=== PATIENT | female | born 1985 | race African-American/Black ===

== ENCOUNTER 2019-01-05 22:13 | Emergency (ER) | payer OTHER ==
[2019-01-05] MEDS ORDERED: DEXTROSE 50%-WATER 25 GM/50 ML DISP.SYRIN IV ONE (22:20)
--- NOTE | 2019-01-06 00:42 | ER Document Report ---
ED General - General Chief Complaint: Low Blood Sugar Stated Complaint: HYPOGLYCEMIA Time Seen by Provider: 01/05/19 22:25 TRAVEL OUTSIDE OF THE [place] IN LAST 30 DAYS: No - HPI Notes: Patient is a 33-year-old female with a history of type 1 diabetes, insulin pump, who presents to the emergency department for evaluation of low blood sugar. The patient states she is feeling weak and dizzy. Her blood sugar was found to be in the 20s. She was given glucagon, glucose, and is feeling improved now. She states she believes she did not eat or drink enough today. She had a Hoang fundoplication performed last November. She states that since then she has difficulty swallowing, but often finds it painful, and admits she just does not take in very much. She states she did have oral glucose tablets in the car, she tried those, but it was too late per her. At this point she denies any pain. She is seeing without difficulty. She is waiting to establish care with endocrinology, she just moved to the area, is under insurance. - Related Data Allergies/Adverse Reactions: azithromycin [From Zithromax] Allergy (Severe, Verified 12/03/14 14:29) Swelling of Throat cinnamon [Cinnamon] Allergy (Severe, Verified 12/03/14 14:29) Swelling of Throat sulfamethoxazole [From Bactrim] Allergy (Severe, Verified 12/03/14 14:29) Swelling of Throat trimethoprim [From Bactrim] Allergy (Severe, Verified 12/03/14 14:29) Swelling of Throat Shellfish * [Shellfish] Allergy (Verified 12/03/14 14:29) latex [Latex] Adverse Reaction (Mild, Verified 12/03/14 14:29) Generalized rash Home Medications: insulin pump Past Medical History - General Information source: Patient - Social History Smoking Status: Unknown if Ever Smoked Family History: Malignancy - BREAST CANCER, LUNG CANCER, IDDM Patient has suicidal ideation: No Patient has homicidal ideation: No - Past Medical History Cardiac Medical History: Reports: Hx Heart Murmur Denies: Hx Atrial Fibrillation, Hx Congestive Heart Failure, Hx Coronary Artery Disease, Hx Heart Attack, Hx Hypercholesterolemia, Hx Hypertension, Hx Peripheral Vascular Disease Pulmonary Medical History: Denies: Hx Tuberculosis Neurological Medical History: Reports: Hx Migraine Endocrine Medical History: Reports: Hx Diabetes Mellitus Type 1 - with pump. Denies: Hx Graves' Disease, Hx Hyperthyroidism, Hx Hypothyroidism Renal/ Medical History: Reports: Hx Ectopic - 7 years ago, Hx Ovarian Cysts. Denies: Hx Pelvic Inflammatory Disease Malignancy Medical History: Reports: Hx Ovarian Cancer. Denies: Hx Breast Cancer, Hx Cervical Cancer Musculoskeletal Medical History: Denies Hx Systemic Lupus Erythematosus Past Surgical History: Reports: Hx Abdominal Surgery - starr fundiplication, Hx Section - x3, Hx Gynecologic Surgery - Laparoscopy for ovarian cyst. Denies: Hx Pacemaker - Immunizations Immunizations up to date: Yes Hx Diphtheria, Pertussis, Tetanus Vaccination: Yes Hx Pneumococcal Vaccination: 02/18/11 Review of Systems - Review of Systems Constitutional: See HPI EENT: No symptoms reported Cardiovascular: No symptoms reported Respiratory: No symptoms reported Gastrointestinal: No symptoms reported Genitourinary: No symptoms reported Musculoskeletal: No symptoms reported Skin: No symptoms reported Neurological/Psychological: See HPI Physical Exam - Vital signs Vitals: Temp Resp Pulse Ox 97.6 F 16 100 01/05/19 22:25 01/05/19 22:25 01/05/19 22:25 - Notes Notes: Is a pleasant 33-year-old female who appears her stated age, no acute distress. Vital signs reviewed, please refer to chart. Head is normocephalic, atraumatic. Pupils equal round, reactive to light. Pharynx is without erythema or exudate. Neck is supple without meningismus. Heart is regular rate and rhythm. Lungs are clear to auscultation bilaterally. Abdomen is soft, nontender, normoactive bowel sounds throughout. Extremities without cyanosis, clubbing. Posterior calves are nontender. Peripheral pulses are equal. Skin is warm and dry. Patient is awake, alert, neurological exam is nonfocal. Course - Re-evaluation Re-evalutation: 01/06/19 00:40 Patient presents emergency department for evaluation of hypoglycemia. She was treated in the field and was feeling improved. She was awake and alert here. Her insulin pump is been removed. She was brought a tray. Her blood glucose continued to stay stable, and it was actually 357 after eating. The patient is confident that she can eat enough to keep her blood sugar up, and the importance of that was stressed to her. She voiced understanding was discharged. - Vital Signs Vital signs: Temp Pulse Resp BP Pulse Ox 97.6 F 21 H 108/83 100 01/05/19 22:25 01/05/19 23:01 01/05/19 23:01 01/05/19 23:01 - Laboratory Laboratory results interpreted by me: 01/06/19 00:14 POC Glucose 357 H Discharge - Discharge Clinical Impression: Hypoglycemia Condition: Stable Disposition: HOME, SELF-CARE Instructions: Hypoglycemia ([facility]) Additional Instructions: Be sure to eat and drink enough to keep your blood sugar within normal limits. Follow-up with primary care this week. Return to the emergency department with worsening or new concerning symptoms of any sort.
[2019-01-06 00:51] VITALS: BP 109/80
== END 2019-01-06 00:55 | disposition home or self-care (01) ==
LOC: ER 22:13
DX: E10.649 Type 1 diabetes mellitus with hypoglycemia without coma (principal); R53.1 Weakness; R42 Dizziness and giddiness; Z88.3 Allergy status to other anti-infective agents; Z96.41 Presence of insulin pump (external) (internal); Z91.040 Latex allergy status; Z85.43 Personal history of malignant neoplasm of ovary
CPT/HCPCS: 82962; 99285

== ENCOUNTER 2019-05-11 17:39 | Emergency (ER) | payer OTHER ==
--- NOTE | 2019-05-11 17:56 | ER Document Report ---
ED Medical Screen (RME) - General Chief Complaint: Swelling of Lower Extremity Stated Complaint: BILATERAL LOWER EXTREMITY EDEMA Time Seen by Provider: 05/11/19 17:48 Mode of Arrival: Ambulatory Information source: Patient Notes: Patient presents with concerns about peripheral edema that started about 7 hours ago. Patient states she has had a 20 pound weight gain over the past 7 hours though denies any excessive increase oral intake. Patient has a history of PE, diabetes and S protein deficiency. Patient is currently taking Xarelto. I have greeted and performed a rapid initial assessment of this patient. A comprehensive ED assessment and evaluation of the patient, analysis of test results and completion of the medical decision making process will be conducted by additional ED providers. TRAVEL OUTSIDE OF THE [place] IN LAST 30 DAYS: No - Related Data Allergies/Adverse Reactions: azithromycin [From Zithromax] Allergy (Severe, Verified 12/03/14 14:29) Swelling of Throat cinnamon [Cinnamon] Allergy (Severe, Verified 12/03/14 14:29) Swelling of Throat sulfamethoxazole [From Bactrim] Allergy (Severe, Verified 12/03/14 14:29) Swelling of Throat trimethoprim [From Bactrim] Allergy (Severe, Verified 12/03/14 14:29) Swelling of Throat Shellfish * [Shellfish] Allergy (Verified 12/03/14 14:29) latex [Latex] Adverse Reaction (Mild, Verified 12/03/14 14:29) Generalized rash Past Medical History - Past Medical History Cardiac Medical History: Reports: Hx Heart Murmur Denies: Hx Atrial Fibrillation, Hx Congestive Heart Failure, Hx Coronary Artery Disease, Hx Heart Attack, Hx Hypercholesterolemia, Hx Hypertension, Hx Peripheral Vascular Disease Pulmonary Medical History: Denies: Hx Tuberculosis Neurological Medical History: Reports: Hx Migraine Endocrine Medical History: Reports: Hx Diabetes Mellitus Type 1 - with pump. Denies: Hx Graves' Disease, Hx Hyperthyroidism, Hx Hypothyroidism Renal/ Medical History: Reports: Hx Ectopic - 7 years ago, Hx Ovarian Cysts. Denies: Hx Pelvic Inflammatory Disease Malignancy Medical History: Reports: Hx Ovarian Cancer. Denies: Hx Breast Cancer, Hx Cervical Cancer Musculoskeltal Medical History: Denies Hx Systemic Lupus Erythematosus Past Surgical History: Reports: Hx Abdominal Surgery - starr fundiplication, Hx Section - x3, Hx Gynecologic Surgery - Laparoscopy for ovarian cyst. Denies: Hx Pacemaker - Immunizations Immunizations up to date: Yes Hx Diphtheria, Pertussis, Tetanus Vaccination: Yes Physical Exam - Vital signs Vitals: Temp Pulse Resp BP Pulse Ox 98.3 F 93 13 118/79 100 05/11/19 17:44 05/11/19 17:44 05/11/19 17:44 05/11/19 17:44 05/11/19 17:44 - General General appearance: Appears well, Alert Notes: 1+ edema to extremities, breath sounds clear Course - Vital Signs Vital signs: Temp Pulse Resp BP Pulse Ox 98.3 F 93 13 118/79 100 05/11/19 17:44 05/11/19 17:44 05/11/19 17:44 05/11/19 17:44 05/11/19 17:44
--- NOTE | 2019-05-11 18:22 | RADIOLOGY REPORT (SQ) ---
EXAM DESCRIPTION: CHEST 2 VIEWS COMPLETED DATE/TIME: 05/11/2019 6:01 pm REASON FOR STUDY: edema COMPARISON: 12/06/2014 TECHNIQUE: Frontal and lateral radiographic views of the chest acquired. NUMBER OF VIEWS: Two view. LIMITATIONS: None. FINDINGS: LUNGS AND PLEURA: No pneumothorax. No consolidation or pleural effusion. MEDIASTINUM AND HILAR STRUCTURES: Stable. HEART AND VASCULAR STRUCTURES: Stable. BONES: No acute findings. HARDWARE: None in the chest. OTHER: No other significant finding. IMPRESSION: NO ACUTE FINDINGS. TECHNICAL DOCUMENTATION: JOB ID: [id number] [place]-72 2010 [employer]- All Rights Reserved Reading location - IP/workstation name: [email or web address]
[2019-05-11 18:53] LABS: HEMATOCRIT 27.2 % (36.0-47.0); HEMOGLOBIN 8.3 g/dL (12.0-15.5); MEAN CORPUSCULAR HEMOGLOBIN 19.8 pg (27.0-33.4); MEAN CORPUSCULAR HGB CONC 30.7 g/dL (32.0-36.0); PLATELET COUNT 359 10^3/uL (150-450); RED BLOOD COUNT 4.22 10^6/uL (3.72-5.28); RED CELL DISTRIBUTION WIDTH 21.6 % (11.5-14.0); WHITE BLOOD COUNT 5.2 10^3/uL (4.0-10.5)
[2019-05-11 19:06] LABS: ALBUMIN 3.2 g/dL (3.5-5.0); ALKALINE PHOSPHATASE 104 U/L (38-126); ANION GAP 12 (5-19); ASPARTATE AMINO TRANSFERASE 207 U/L (14-36); BILIRUBIN,DIRECT 0.2 mg/dL (0.0-0.4); BILIRUBIN,TOTAL 0.3 mg/dL (0.2-1.3); BLOOD UREA NITROGEN 11 mg/dL (7-20); CALCIUM 8.9 mg/dL (8.4-10.2); CARBON DIOXIDE 22 mmol/L (22-30); CHLORIDE 107 mmol/L (98-107); GLUCOSE 174 mg/dL (75-110); POTASSIUM 3.8 mmol/L (3.6-5.0); TOTAL PROTEIN 6.5 g/dL (6.3-8.2)
[2019-05-11 19:28] LABS: ABSOLUTE LYMPHOCYTES# (MANUAL) 1.7 10^3/uL (0.5-4.7); ABSOLUTE MONOCYTES # (MANUAL) 0.1 10^3/uL (0.1-1.4); BASOPHILS % (MANUAL) 0 % (0-2); EOSINOPHILS % (MANUAL) 2 % (0-6); LYMPHOCYTES % (MANUAL) 33 % (13-45); MONOCYTES % (MANUAL) 2 % (3-13); NUCLEATED RED BLOOD CELLS 1 /100 WBC (0); SEGMENTED NEUTROPHILS % (MAN) 63 % (42-78); TOTAL CELLS COUNTED 100
[2019-05-11 19:31] LABS: ANISOCYTOSIS 3+; HYPOCHROMASIA 1+; OVALOCYTES SLIGHT; POIKILOCYTOSIS SLIGHT; TARGET CELLS SLIGHT; TEAR DROP CELLS SLIGHT
[2019-05-11 19:32] LABS: MEAN CORPUSCULAR VOLUME 65 fl (80-97); PLATELET COMMENT ADEQUATE
--- NOTE | 2019-05-11 21:34 | EKG REPORT ---
SEVERITY:- BORDERLINE ECG - SINUS RHYTHM BORDERLINE T WAVE ABNORMALITIES : Confirmed by: Claude Whitfield MD 11-May-2019 21:34:13
--- NOTE | 2019-05-11 21:41 | ER Document Report ---
ED General - General Chief Complaint: Leg Swelling Stated Complaint: BILATERAL LOWER EXTREMITY EDEMA Time Seen by Provider: 05/11/19 17:48 Primary Care Provider: CASE SOLIMAN MD [Primary Care Provider] - Follow up as needed Mode of Arrival: Ambulatory Notes: 34-year-old woman presents to the emergency department with a history of DVT and pulmonary embolus in the past. She states that she developed pulmonary embolus after abdominal surgery approximately blank. She notes that she has had a increased weight gain and swelling which began this afternoon. She has had a heaviness in her chest and she is concerned that she may have another pulmonary embolus. She is taking Xarelto and denies chest pain. She does complain of a heaviness when she takes a deep breath. She presents to the ER for evaluation for pulmonary embolus. Patient is a insulin-dependent diabetes mellitus patient and on insulin pump. TRAVEL OUTSIDE OF THE [place] IN LAST 30 DAYS: No - Related Data Allergies/Adverse Reactions: azithromycin [From Zithromax] Allergy (Severe, Verified 12/03/14 14:29) Swelling of Throat cinnamon [Cinnamon] Allergy (Severe, Verified 12/03/14 14:29) Swelling of Throat sulfamethoxazole [From Bactrim] Allergy (Severe, Verified 12/03/14 14:29) Swelling of Throat trimethoprim [From Bactrim] Allergy (Severe, Verified 12/03/14 14:29) Swelling of Throat Shellfish * [Shellfish] Allergy (Verified 12/03/14 14:29) latex [Latex] Adverse Reaction (Mild, Verified 12/03/14 14:29) Generalized rash Past Medical History - General Information source: Patient - Social History Smoking Status: Never Smoker Frequency of alcohol use: None Drug Abuse: None Family History: Malignancy - BREAST CANCER, LUNG CANCER, IDDM Patient has suicidal ideation: No Patient has homicidal ideation: No - Past Medical History Cardiac Medical History: Reports: Hx Heart Murmur Denies: Hx Atrial Fibrillation, Hx Congestive Heart Failure, Hx Coronary Artery Disease, Hx Heart Attack, Hx Hypercholesterolemia, Hx Hypertension, Hx Peripheral Vascular Disease Pulmonary Medical History: Denies: Hx Tuberculosis Neurological Medical History: Reports: Hx Migraine Endocrine Medical History: Reports: Hx Diabetes Mellitus Type 1 - with pump. Denies: Hx Graves' Disease, Hx Hyperthyroidism, Hx Hypothyroidism Renal/ Medical History: Reports: Hx Ectopic - 7 years ago, Hx Ovarian Cysts. Denies: Hx Pelvic Inflammatory Disease Malignancy Medical History: Reports: Hx Ovarian Cancer. Denies: Hx Breast Cancer, Hx Cervical Cancer Musculoskeletal Medical History: Denies Hx Systemic Lupus Erythematosus Past Surgical History: Reports: Hx Abdominal Surgery - starr fundiplication, Hx Section - x3, Hx Gynecologic Surgery - Laparoscopy for ovarian cyst. Denies: Hx Pacemaker - Immunizations Immunizations up to date: Yes Hx Diphtheria, Pertussis, Tetanus Vaccination: Yes Hx Pneumococcal Vaccination: 02/18/11 Review of Systems - Review of Systems Notes: Constitutional: + Weight gain HENT: Negative for sore throat. Eyes: Negative for visual changes. Cardiovascular: Negative for chest pain. Respiratory: + Shortness of breath Gastrointestinal: Negative for abdominal pain, vomiting or diarrhea. Genitourinary: negative for dysuria. Musculoskeletal: + Lower extremity edema Skin: Negative for rash. Neurological: Negative for headaches, weakness or numbness. 10 point ROS negative except as marked above and in HPI. Physical Exam - Vital signs Vitals: Temp Pulse Resp BP Pulse Ox 98.3 F 93 13 118/79 100 05/11/19 17:44 05/11/19 17:44 05/11/19 17:44 05/11/19 17:44 05/11/19 17:44 - Notes Notes: PHYSICAL EXAMINATION: Physical Exam: General: Well-nourished well-developed 34-year-old female in no acute distress HEENT: NC/AT, pupils equal round and reactive to light, MM moist,nares clear, oropharynx clear, airway patent Neck: supple, no adenopathy, no masses. Good range of motion Lungs: clear, no wheezing, no rales no rhonchi CVS: Regular rate and rhythm no murmur gallop or rub Abdomen: Soft, active, nontender, no masses, no hepatosplenomegaly Ext: Lower extremity edema Neuro: Alert and responsive, moving all 4 extremities on command, cranial nerves intact, no focal findings Skin: Intact no open lesions, no rash PSYCH: Normal mood, normal affect. Course - Re-evaluation Re-evalutation: 05/12/19 00:19 The patient CTA was negative for pulmonary embolus. Will treat with Lasix, encouraged outpatient follow-up, the patient is aware of this plan and is agreeable. - Vital Signs Vital signs: Temp Pulse Resp BP Pulse Ox 98.3 F 93 17 117/89 H 97 05/11/19 17:44 05/11/19 17:44 05/11/19 23:01 05/11/19 23:01 05/11/19 23:01 - Laboratory Result Diagrams: 05/11/19 18:20 05/11/19 18:20 Laboratory results interpreted by me: 05/11/19 05/11/19 18:20 18:20 Hgb 8.3 L Hct 27.2 L MCV 65 L MCH 19.8 L MCHC 30.7 L RDW 21.6 H Monocytes % (Manual) 2 L Glucose 174 H AST 207 H ALT 83 H Albumin 3.2 L 05/12/19 00:20 I have reviewed laboratory data and used this information for the treatment decisions regarding the patient. - Diagnostic Test Radiology reviewed: Image reviewed, Reports reviewed - CTA chest: No acute pulmonary emboli seen. Chest x-ray: No acute cardiopulmonary findings. - EKG Interpretation by Me EKG shows normal: Sinus rhythm - Rate of 90, nonspecific T wave abnormality, no acute ST or T wave abnormalities noted. Discharge - Discharge Clinical Impression: Abnormal weight gain Fluid retention in tissues Qualifiers: Edema type: localized Qualified Code(s): R60.0 - Localized edema Condition: Good Disposition: HOME, SELF-CARE Additional Instructions: You are diagnosed with abnormal fluid retention and weight gain in the emergency department tonight. Continue to use Lasix at 20 mg daily and please follow-up with your primary care doctor regarding the use of diuretics and follow-up of your laboratory work. If your symptoms are worsening or if you have other concerns you may return to the emergency department for further evaluation and treatment. HOME CARE INSTRUCTIONS & INFORMATION: Thank you for choosing us for your medical needs. We hope you're satisfied with the care you received. After you leave, you must properly care for your problem and, at the same time, observe its progress. Any condition can change. Some illnesses can change rapidly over hours or days. If your condition worsens, return to the Emergency Department or see your physician promptly. ABOUT YOUR X-RAYS AND EKG'S: If you had an EKG or X-rays taken, they have been read by the Emergency Physician. The X-rays and EKG's will also be read by a Radiologist or [employer]print [employer]ator within 24 hours. If discrepancies are noted, you will be notified by telephone. Please be certain the ED has a correct telephone number & address where you can be reached. Also, realize that some fractures or abnormalities do not show up on initial X-rays. If your symptoms continue, see your physician. ABOUT YOUR LABORATORY TEST: If you had laboratory tests, the results have been reviewed by the Emergency Physician. Some test results (for example cultures) may not be available for several days. You will be contacted if any test result shows you need additional treatment. Please be certain the ED has a correct telephone number and address where you can be reached. ABOUT YOUR MEDICATIONS: You will receive instructions on how to take your medicine on the prescription label you receive. Additional information may be provided by the Pharmacy. If you have questions afterwards, call the ED for clarification or further instructions. Some prescribed medications may cause drowsiness. Do not perform tasks such as driving a car or operating machinery without consulting your Pharmacist. If you feel you need a refill of pain medication, your condition will need re-evaluation. Please do not call for a refill of any medication. ABOUT YOUR SIGNATURE: Signature of this document acknowledges to followin. Understanding that you received emergency treatment and that you may be released before al medical problems are known or treated. Please be certain the ED has a correct phone number & address where you can be reached. 2. Acknowledgement that you will arrange for follow-up care as recommended. 3. Authorization for the Emergency Physician to provide information to your follow-up Physician in order to maximize your care. AT ANY TIME, IF YOUR SYMPTOMS CHANGE SIGNIFICANTLY OR WORSEN OR YOU DEVELOP NEW SYMPTOMS, RETURN TO THE EMERGENCY DEPARTMENT IMMEDIATELY FOR RE-EVALUATION. OUR GOAL IS TO PROVIDE EXCELLENT MEDICAL CARE! WE HOPE THAT WE HAVE MET YOUR EXPECTATIONS DURING YOUR EMERGENCY DEPARTMENT VISIT AND THAT YOU FEEL YOU HAVE RECEIVED EXCELLENT CARE! Prescriptions: Furosemide [Lasix 20 mg Tablet] 20 mg PO QAM #10 tablet Referrals: CASE SOLIMAN MD [Primary Care Provider] - Follow up as needed
[2019-05-11] MEDS ORDERED: ALBUTEROL SULFATE HFA (90 MCG/PUFF) 8 GM MDI (1 MDI/ER DISP) IH ONE (21:45)
--- NOTE | 2019-05-11 22:08 | RADIOLOGY REPORT (SQ) ---
CLINICAL INDICATION: Shortness of breath. . TECHNIQUE: CT arteriography was obtained of the chest with multiplanar MIP and/or 3-D angiographic reconstructions. This exam was performed according to our departmental dose-optimization program, which includes automated exposure control, adjustment of the mA and/or kV according to patient size and/or use of iterative reconstruction techniques. COMPARISON: None. CORRELATION: None. FINDINGS: Adequate contrast bolus. Average Hounsfield unit measurement within main pulmonary artery segment of 378. Artifact from venous opacification. There is no evidence of pulmonary embolus. Thoracic aorta is of normal caliber. 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 No pericardial effusion. No bulky mediastinal adenopathy. The lungs demonstrate tiny bilateral pleural effusions. Dependent atelectasis. Subtle interstitial prominence dependently in the lower lobes, unknown etiology. This is nonfocal. No pneumothorax. Visualized abdominal contents are unremarkable. Visualized bones are unremarkable. IMPRESSION: No evidence of pulmonary embolus. Tiny pleural effusions and dependent interstitial prominence bilaterally. No significant vascular congestion. No pneumothorax. No dense consolidation.
[2019-05-11] MEDS ORDERED: FUROSEMIDE INJ/PF 20 MG/2 ML SDV IV ONE (23:40)
[2019-05-11 23:41] VITALS: BP 117/89
[2019-05-12 12:19] LABS: PATH REVIEW PATHOLOGIST REVIEWED
== END 2019-05-12 00:40 | disposition home or self-care (01) ==
LOC: ER 17:39
DX: R60.0 Localized edema (principal); R63.5 Abnormal weight gain; R06.02 Shortness of breath; E10.9 Type 1 diabetes mellitus without complications; Z86.711 Personal history of pulmonary embolism; Z79.01 Long term (current) use of anticoagulants; Z88.3 Allergy status to other anti-infective agents; Z91.040 Latex allergy status; Z79.4 Long term (current) use of insulin; Z96.41 Presence of insulin pump (external) (internal)
CPT/HCPCS: 93005; 99284; 96374; 36415; 85025; 80053; 83880; 71046; 71275; 93010; J1940

== ENCOUNTER 2019-10-25 17:03 | Emergency (ER) | payer OTHER ==
--- NOTE | 2019-10-25 17:31 | ER Document Report ---
ED Medical Screen (RME) - General Chief Complaint: Vaginal Bleeding Stated Complaint: EXCESSIVE BLEEDING Time Seen by Provider: 10/25/19 17:17 Primary Care Provider: ALETHEA VILLALOBOS DO [Primary Care Provider] - Follow up as needed TRAVEL OUTSIDE OF THE [place] IN LAST 30 DAYS: No - HPI Notes: 10/25/19 17:30 I performed a brief medical screening exam on the patient determined that the patient needs further evaluation and management by main side provider. I have placed initial orders to help expedite care. 34-year-old female with pertinent past medical history of PE, DVT, vaginal bleeding, type 1 diabetes to the emergency department with complaints of weakness, shortness of breath, chest pain, persistent vaginal bleeding that has worsened in the past several days. In total, the vaginal bleeding is been ongoing for 45 days. She has been off and on progesterone from the [employer]. However she has not really noticed a significant difference in that. She is scheduled to have iron infusions this upcoming week with her hand ironer, Dr. Jj. She states she did not feel like she could wait that long. She admits to lightheadedness but has not passed out. - Related Data Allergies/Adverse Reactions: azithromycin [From Zithromax] Allergy (Severe, Verified 12/03/14 14:29) Swelling of Throat cinnamon [Cinnamon] Allergy (Severe, Verified 12/03/14 14:29) Swelling of Throat sulfamethoxazole [From Bactrim] Allergy (Severe, Verified 12/03/14 14:29) Swelling of Throat trimethoprim [From Bactrim] Allergy (Severe, Verified 12/03/14 14:29) Swelling of Throat phenol [From Chloraseptic] Allergy (Verified 10/25/19 17:09) Shellfish * [Shellfish] Allergy (Verified 12/03/14 14:29) latex [Latex] Adverse Reaction (Mild, Verified 12/03/14 14:29) Generalized rash Past Medical History - Past Medical History Cardiac Medical History: Reports: Hx Heart Murmur Denies: Hx Atrial Fibrillation, Hx Congestive Heart Failure, Hx Coronary Artery Disease, Hx Heart Attack, Hx Hypercholesterolemia, Hx Hypertension, Hx Peripheral Vascular Disease Pulmonary Medical History: Denies: Hx Tuberculosis Neurological Medical History: Reports: Hx Migraine Endocrine Medical History: Reports: Hx Diabetes Mellitus Type 1 - with pump. Denies: Hx Graves' Disease, Hx Hyperthyroidism, Hx Hypothyroidism Renal/ Medical History: Reports: Hx Ectopic - 7 years ago, Hx Ovarian Cysts. Denies: Hx Pelvic Inflammatory Disease Malignancy Medical History: Reports: Hx Ovarian Cancer. Denies: Hx Breast Cancer, Hx Cervical Cancer Musculoskeltal Medical History: Denies Hx Systemic Lupus Erythematosus Past Surgical History: Reports: Hx Abdominal Surgery - starr fundiplication, Hx Section - x3, Hx Gynecologic Surgery - Laparoscopy for ovarian cyst. Denies: Hx Pacemaker - Immunizations Immunizations up to date: Yes Hx Diphtheria, Pertussis, Tetanus Vaccination: Yes Physical Exam - Vital signs Vitals: Temp Pulse Resp BP Pulse Ox 98.2 F 102 H 14 122/80 99 10/25/19 17:09 10/25/19 17:10/25/19 17:10/25/19 17:10/25/19 17:09 Course - Vital Signs Vital signs: Temp Pulse Resp BP Pulse Ox 98.2 F 102 H 14 122/80 99 10/25/19 17:09 10/25/19 17:09 10/25/19 17:09 10/25/19 17:09 10/25/19 17:09 Doctor's Discharge - Discharge Referrals: ALETHEA VILLALOBOS DO [Primary Care Provider] - Follow up as needed
--- NOTE | 2019-10-25 18:33 | EKG REPORT ---
SEVERITY:- ABNORMAL ECG - SINUS TACHYCARDIA DIFFUSE NONSPECIFIC BIPHASIC T WAVES, NEW COMPARED TO 05/11/19 EKG : Confirmed by: Claude Whitfield MD 25-Oct-2019 18:32:48
[2019-10-25 18:42] LABS: ABSOLUTE BASOPHILS # (AUTO) 0.1 10^3/uL (0.0-0.2); ABSOLUTE LYMPHOCYTES (AUTO) 1.7 10^3/uL (0.5-4.7); ABSOLUTE MONOCYTES (AUTO) 0.4 10^3/uL (0.1-1.4); ABSOLUTE NEUT (AUTO) 7.2 10^3/uL (1.7-8.2); BASOPHILS % (AUTO) 1.3 % (0-2); EOSINOPHILS % (AUTO) 0.3 % (0-6); HEMATOCRIT 36.6 % (36.0-47.0); HEMOGLOBIN 12.4 g/dL (12.0-15.5); LYMPHOCYTES % (AUTO) 18.2 % (13-45); MEAN CORPUSCULAR HEMOGLOBIN 27.7 pg (27.0-33.4); MEAN CORPUSCULAR HGB CONC 33.8 g/dL (32.0-36.0); MEAN CORPUSCULAR VOLUME 82 fl (80-97); MONOCYTES % (AUTO) 4.3 % (3-13); PLATELET COUNT 422 10^3/uL (150-450); RED BLOOD COUNT 4.47 10^6/uL (3.72-5.28); RED CELL DISTRIBUTION WIDTH 23.9 % (11.5-14.0); SEGMENTED NEUTROPHILS % (AUTO) 75.9 % (42-78); TOTAL CELLS COUNTED % (AUTO) 100 %; WHITE BLOOD COUNT 9.4 10^3/uL (4.0-10.5)
[2019-10-25] MEDS ORDERED: NORMAL SALINE 1000 ML 1,000 ML IV ONE (18:53)
--- NOTE | 2019-10-25 18:57 | ER Document Report ---
ED GI/ - General Chief Complaint: Vaginal Bleeding Stated Complaint: EXCESSIVE BLEEDING Time Seen by Provider: 10/25/19 17:17 Primary Care Provider: ALETHEA VILLALOBOS DO [Primary Care Provider] - Follow up as needed Notes: This 34-year-old female presents to the emergency department with a 4 to 5-day history of vaginal bleeding. She has been on progesterone and is taking the last dose today at 5 mg. She is continued to have heavy bleeding complains of dizziness and rapid heartbeat. She denies syncope for severe pain. She has a history of pulmonary embolus was on Coumadin, however it was discontinued due to the heavy bleeding. She has been told that she needs a ablation procedure or hysterectomy. No decision has been made regarding [employer] intervention at this time. TRAVEL OUTSIDE OF THE [place] IN LAST 30 DAYS: No - Related Data Allergies/Adverse Reactions: azithromycin [From Zithromax] Allergy (Severe, Verified 12/03/14 14:29) Swelling of Throat cinnamon [Cinnamon] Allergy (Severe, Verified 12/03/14 14:29) Swelling of Throat sulfamethoxazole [From Bactrim] Allergy (Severe, Verified 12/03/14 14:29) Swelling of Throat trimethoprim [From Bactrim] Allergy (Severe, Verified 12/03/14 14:29) Swelling of Throat phenol [From Chloraseptic] Allergy (Verified 10/25/19 17:09) Shellfish * [Shellfish] Allergy (Verified 12/03/14 14:29) latex [Latex] Adverse Reaction (Mild, Verified 12/03/14 14:29) Generalized rash Past Medical History - Social History Smoking Status: Never Smoker Family History: Malignancy - BREAST CANCER, LUNG CANCER, IDDM - Past Medical History Cardiac Medical History: Reports: Hx Heart Murmur Denies: Hx Atrial Fibrillation, Hx Congestive Heart Failure, Hx Coronary Artery Disease, Hx Heart Attack, Hx Hypercholesterolemia, Hx Hypertension, Hx Peripheral Vascular Disease Pulmonary Medical History: Denies: Hx Tuberculosis Neurological Medical History: Reports: Hx Migraine Endocrine Medical History: Reports: Hx Diabetes Mellitus Type 1 - with pump. Denies: Hx Graves' Disease, Hx Hyperthyroidism, Hx Hypothyroidism Renal/ Medical History: Reports: Hx Ectopic - 7 years ago, Hx Ovarian Cysts. Denies: Hx Pelvic Inflammatory Disease Malignancy Medical History: Reports: Hx Ovarian Cancer. Denies: Hx Breast Cancer, Hx Cervical Cancer Musculoskeletal Medical History: Denies Hx Systemic Lupus Erythematosus Past Surgical History: Reports: Hx Abdominal Surgery - starr fundiplication, Hx Section - x3, Hx Gynecologic Surgery - Laparoscopy for ovarian cyst. Denies: Hx Pacemaker - Immunizations Immunizations up to date: Yes Hx Diphtheria, Pertussis, Tetanus Vaccination: Yes Hx Pneumococcal Vaccination: 02/18/11 Review of Systems - Review of Systems Notes: Constitutional: Negative for fever. HENT: Negative for sore throat. Eyes: Negative for visual changes. Cardiovascular: Negative for chest pain. Respiratory: Negative for shortness of breath. Gastrointestinal: Negative for abdominal pain, vomiting or diarrhea. Genitourinary: + Excessive vaginal bleeding Musculoskeletal: Negative for back pain. Skin: Negative for rash. Neurological: Negative for headaches, weakness or numbness. 10 point ROS negative except as marked above and in HPI. Physical Exam - Vital signs Vitals: Temp Pulse Resp BP Pulse Ox 98.2 F 102 H 14 122/80 99 10/25/19 17:09 10/25/19 17:09 10/25/19 17:09 10/25/19 17:09 10/25/19 17:09 - Notes Notes: PHYSICAL EXAMINATION: Physical Exam: General: Well-nourished well-developed 34-year-old man in no acute distress HEENT: NC/AT, pupils equal round and reactive to light, MM moist,nares clear, oropharynx clear, airway patent, conjunctiva pink Neck: supple, no adenopathy, no masses. Good range of motion Lungs: clear, no wheezing, no rales no rhonchi CVS: Regular rate and rhythm no murmur gallop or rub Abdomen: Soft, active, nontender, no masses, no hepatosplenomegaly Ext: No edema, clubbing or cyanosis. Neuro: Alert and responsive, moving all 4 extremities on command, cranial nerves intact, no focal findings Skin: Intact no open lesions, no rash good capillary refill PSYCH: Normal mood, normal affect. Course - Re-evaluation Re-evalutation: 10/25/19 22:04 Patient is given normal saline 1 L, her H&H came back at 12 and 36. I spoke with Dr. Gray, I think we both agree that the patient's hemoglobin hematocrit are stable enough to be discharged home. She will be given Provera 10 mg, 10- day supply she will follow-up as an outpatient. The patient was given this information she is agreeable with that plan. - Vital Signs Vital signs: Temp Pulse Resp BP Pulse Ox 98.2 F 102 H 19 119/84 100 10/25/19 17:09 10/25/19 17:09 10/25/19 21:01 10/25/19 21:00 10/25/19 21:01 - Laboratory Result Diagrams: 10/25/19 18:30 10/25/19 18:30 Laboratory results interpreted by me: 10/25/19 10/25/19 10/25/19 18:30 18:30 20:56 RDW 23.9 H Carbon Dioxide 15 L Anion Gap 21 H Glucose 140 H POC Glucose 59 L Total Protein 8.7 H Discharge - Discharge Clinical Impression: Excessive vaginal bleeding Condition: Good Disposition: HOME, SELF-CARE Instructions: Vaginal Bleeding ([facility]) Additional Instructions: You are seen in the emergency department tonight because of excessive vaginal bleeding, your blood count was normal. You are being given a prescription for Provera 10 mg tablets 1 tablet daily for 10 days. You will follow-up with your outpatient doctors for further evaluation and treatment. HOME CARE INSTRUCTIONS & INFORMATION: Thank you for choosing us for your medical needs. We hope you're satisfied with the care you received. After you leave, you must properly care for your problem and, at the same time, observe its progress. Any condition can change. Some illnesses can change rapidly over hours or days. If your condition worsens, return to the Emergency Department or see your physician promptly. ABOUT YOUR X-RAYS AND EKG'S: If you had an EKG or X-rays taken, they have been read by the Emergency Physician. The X-rays and EKG's will also be read by a Radiologist or Director Of Reimbursement within 24 hours. If discrepancies are noted, you will be notified by telephone. Please be certain the ED has a correct telephone number & address where you can be reached. Also, realize that some fractures or abnormalities do not show up on initial X-rays. If your symptoms continue, see your physician. ABOUT YOUR LABORATORY TEST: If you had laboratory tests, the results have been reviewed by the Emergency Physician. Some test results (for example cultures) may not be available for several days. You will be contacted if any test result shows you need additional treatment. Please be certain the ED has a correct telephone number and address where you can be reached. ABOUT YOUR MEDICATIONS: You will receive instructions on how to take your medicine on the prescription label you receive. Additional information may be provided by the Pharmacy. If you have questions afterwards, call the ED for clarification or further instructions. Some prescribed medications may cause drowsiness. Do not perform tasks such as driving a car or operating machinery without consulting your Pharmacist. If you feel you need a refill of pain medication, your condition will need re-evaluation. Please do not call for a refill of any medication. ABOUT YOUR SIGNATURE: Signature of this document acknowledges to followin. Understanding that you received emergency treatment and that you may be released before al medical problems are known or treated. Please be certain the ED has a correct phone number & address where you can be reached. 2. Acknowledgement that you will arrange for follow-up care as recommended. 3. Authorization for the Emergency Physician to provide information to your follow-up Physician in order to maximize your care. AT ANY TIME, IF YOUR SYMPTOMS CHANGE SIGNIFICANTLY OR WORSEN OR YOU DEVELOP NEW SYMPTOMS, RETURN TO THE EMERGENCY DEPARTMENT IMMEDIATELY FOR RE-EVALUATION. OUR GOAL IS TO PROVIDE EXCELLENT MEDICAL CARE! WE HOPE THAT WE HAVE MET YOUR EXPECTATIONS DURING YOUR EMERGENCY DEPARTMENT VISIT AND THAT YOU FEEL YOU HAVE RECEIVED EXCELLENT CARE! Prescriptions: Medroxyprogesterone Acet [Provera 10 Mg Tablet] 10 mg PO DAILY #10 tablet Referrals: ALETHEA VILLALOBOS DO [Primary Care Provider] - Follow up as needed
[2019-10-25 19:03] LABS: ANISOCYTOSIS 3+; POIKILOCYTOSIS SLIGHT; POLYCHROMASIA SLIGHT; TOXIC VACUOLATION PRESENT
[2019-10-25 19:04] LABS: OVALOCYTES SLIGHT; PAPPENHEIMER BODIES PRESENT; PLATELET COMMENT ADEQUATE; TEAR DROP CELLS SLIGHT
[2019-10-25 19:08] LABS: ALBUMIN 4.8 g/dL (3.5-5.0); ASPARTATE AMINO TRANSFERASE 27 U/L (14-36); BILIRUBIN,DIRECT 0.4 mg/dL (0.0-0.4); BILIRUBIN,TOTAL 0.5 mg/dL (0.2-1.3); BLOOD UREA NITROGEN 13 mg/dL (7-20); CALCIUM 10.2 mg/dL (8.4-10.2); CHLORIDE 104 mmol/L (98-107); GLUCOSE 140 mg/dL (75-110); NEONATAL BILIRUBIN RESULT 0.1 mg/dL (0.1-1.1); POTASSIUM 3.8 mmol/L (3.6-5.0); TOTAL PROTEIN 8.7 g/dL (6.3-8.2)
[2019-10-25 19:09] LABS: ALKALINE PHOSPHATASE 83 U/L (38-126)
[2019-10-25 19:13] LABS: CARBON DIOXIDE 15 mmol/L (22-30)
[2019-10-25 19:14] LABS: ANION GAP 21 (5-19)
[2019-10-25 23:09] VITALS: BP 107/82
== END 2019-10-25 23:09 | disposition home or self-care (01) ==
LOC: ER 17:03
DX: N93.9 Abnormal uterine and vaginal bleeding, unspecified (principal); R42 Dizziness and giddiness; R00.0 Tachycardia, unspecified; E10.9 Type 1 diabetes mellitus without complications; Z79.899 Other long term (current) drug therapy; Z86.711 Personal history of pulmonary embolism; Z88.1 Allergy status to other antibiotic agents; Z91.018 Allergy to other foods; Z91.013 Allergy to seafood; Z91.040 Latex allergy status
CPT/HCPCS: 93005; 99284; 96360; 96361; 86900; 86901; 36415; 86850; 82962; 85025; 80053; 93010; J7030; 96374